=== PATIENT | male | born 1985 | race African-American/Black ===

== ENCOUNTER 2022-03-09 17:11 | Inpatient (IN) | payer OTHER ==
[2022-03-09 21:09] VITALS: BMI 24.3
[2022-03-09] MEDS ORDERED: MAGNESIUM CITRATE 300 ML BOTTLE PO PRN (22:16)
[2022-03-09] MEDS ORDERED: IBUPROFEN 600 MG TABLET (FP) PO PRN (22:16)
[2022-03-09] MEDS ORDERED: P-EPHED 60MG/TRIPROLIDI 2.5MG TABLET PO PRN (22:16)
[2022-03-09] MEDS ORDERED: BISMUTH SUBSALICYLATE 524 MG/30 ML PO PRN (22:16)
[2022-03-09] MEDS ORDERED: hydrOXYzine PAMOATE 25 MG CAPSULE (FP) PO PRN (22:16)
[2022-03-09] MEDS ORDERED: ONDANSETRON *ODT* 4 MG TABLET SL PRN (22:16)
[2022-03-09] MEDS ORDERED: DICYCLOMINE HCL 10 MG CAPSULE PO PRN (22:16)
[2022-03-09] MEDS ORDERED: ACETAMINOPHEN 325 MG TABLET (FP) PO PRN ×2 (22:16)
[2022-03-09] MEDS ORDERED: MAGNESIUM HYDROX 2400MG/30ML ORAL SUSPENSION 30 ML CUP PO PRN (22:16)
[2022-03-09] MEDS ORDERED: LOPERAMIDE HCL 2 MG CAPSULE PO PRN (22:16)
[2022-03-09] MEDS ORDERED: NICOTINE 10 MG CARTRIDGE (INHALER) IH PRN (22:16)
[2022-03-09] MEDS ORDERED: METHOCARBAMOL 500 MG TABLET PO PRN (22:16)
[2022-03-09] MEDS ORDERED: IBUPROFEN 400 MG TABLET (FP) PO PRN (22:16)
[2022-03-09] MEDS ORDERED: guaiFENesin 200 MG/10 ML 10 ML UNIT-DOSE CUPS PO PRN (22:16)
[2022-03-09] MEDS ORDERED: BENZOCAINE/MENTHOL (CHLORASEPTIC ) LOZENGE MM PRN (22:16)
[2022-03-10] MEDS ORDERED: chlordiazePOXIDE HCL 25 MG CAPSULE PO PRN (08:59)
[2022-03-10] MEDS: chlordiazePOXIDE HCL 25 MG CAPSULE PO SCH ×3 (10:29→22:29)
[2022-03-10] MEDS: PRENATAL VITAMINS W/ FOLIC ACID TABLET (FP) PO SCH (10:29)
[2022-03-10 14:54] LABS: HEMATOCRIT 42.5 % (35.4-49); HEMOGLOBIN 14.2 GM/dL (11.7-16.9); MCH 28.7 pg (25.7-33.7); MCHC 33.3 g/dl (32.0-35.9); MEAN CELL VOLUME 86.1 fl (80-96); MEAN PLT VOLUME 9.2 fl (7.5-11.1); PLATELET COUNT 294 10^3/uL (134-434); RBC 4.94 M/mm3 (4.00-5.60); RDW 12.2 % (11.9-15.9); WHITE BLOOD COUNT 4.8 K/mm3 (4.0-10.0)
[2022-03-10 14:54] LABS: CALCIUM 9.2 mg/dL (8.5-10.1)
[2022-03-10 14:55] LABS: ALBUMIN 3.8 g/dl (3.4-5.0); BLOOD UREA NITROGEN 9.3 mg/dL (7-18)
[2022-03-10 14:58] LABS: CREATININE 1.1 mg/dL (0.55-1.3)
[2022-03-10 15:02] LABS: BILIRUBIN,TOTAL 0.3 mg/dL (0.2-1); TOT PROT 6.6 g/dl (6.4-8.2)
[2022-03-10] MEDS: THIAMINE HCL 100 MG TABLET (FP) PO SCH (22:29)
[2022-03-10] MEDS: MELATONIN 5 MG TABLETS PO SCH (22:29)
[2022-03-10] MEDS: risperiDONE 1 MG TABLET PO SCH (22:29)
[2022-03-10] MEDS: DIVALPROEX SODIUM 500 MG TABLET E.C. PO SCH (22:29)
[2022-03-11] MEDS: chlordiazePOXIDE HCL 25 MG CAPSULE PO SCH ×4 (06:25→22:31)
[2022-03-11] MEDS: PRENATAL VITAMINS W/ FOLIC ACID TABLET (FP) PO SCH (10:36)
[2022-03-11] MEDS: DIVALPROEX SODIUM 500 MG TABLET E.C. PO SCH ×2 (10:36→22:32)
[2022-03-11] MEDS: risperiDONE 1 MG TABLET PO SCH ×2 (10:36→22:32)
[2022-03-11] MEDS: MELATONIN 5 MG TABLETS PO SCH (22:32)
[2022-03-11] MEDS: THIAMINE HCL 100 MG TABLET (FP) PO SCH (22:32)
[2022-03-12] MEDS: chlordiazePOXIDE HCL 25 MG CAPSULE PO SCH ×4 (05:31→22:07)
[2022-03-12] MEDS: MAG HYDROX/AL HYDROX/SIMETH 30 ML UNIT-DOSE CUP PO PRN ×2 (05:58→16:31)
[2022-03-12] MEDS: risperiDONE 1 MG TABLET PO SCH ×2 (10:42→22:06)
[2022-03-12] MEDS: PRENATAL VITAMINS W/ FOLIC ACID TABLET (FP) PO SCH (10:42)
[2022-03-12] MEDS: DIVALPROEX SODIUM 500 MG TABLET E.C. PO SCH ×2 (10:42→22:06)
[2022-03-12] MEDS: THIAMINE HCL 100 MG TABLET (FP) PO SCH (22:06)
[2022-03-12] MEDS: MELATONIN 5 MG TABLETS PO SCH (22:06)
[2022-03-13] MEDS ORDERED: chlordiazePOXIDE HCL 10 MG CAPSULE PO PRN
[2022-03-13] MEDS: chlordiazePOXIDE HCL 10 MG CAPSULE PO SCH ×4 (05:01→22:08)
[2022-03-13] MEDS: PRENATAL VITAMINS W/ FOLIC ACID TABLET (FP) PO SCH (10:19)
[2022-03-13] MEDS: risperiDONE 1 MG TABLET PO SCH ×2 (10:20→22:07)
[2022-03-13] MEDS: DIVALPROEX SODIUM 500 MG TABLET E.C. PO SCH ×2 (10:20→22:07)
[2022-03-13] MEDS: THIAMINE HCL 100 MG TABLET (FP) PO SCH (22:07)
[2022-03-13] MEDS: MELATONIN 5 MG TABLETS PO SCH (22:08)
[2022-03-14] MEDS ORDERED: chlordiazePOXIDE HCL 10 MG CAPSULE PO SCH (05:00)
[2022-03-14] MEDS: PRENATAL VITAMINS W/ FOLIC ACID TABLET (FP) PO SCH (12:05)
[2022-03-14] MEDS: DIVALPROEX SODIUM 500 MG TABLET E.C. PO SCH (12:05)
[2022-03-14] MEDS: risperiDONE 1 MG TABLET PO SCH (12:05)
[2022-03-14 15:31] VITALS: BP 134/77; PULSE 76; TEMP 97.7
[2022-03-15] MEDS ORDERED: chlordiazePOXIDE HCL 10 MG CAPSULE PO ONE (05:00)
== END 2022-03-14 17:24 | disposition home or self-care (01) | DRG 774 ==
LOC: YASAS 17:11 → Y3N 22:55
PROVIDERS: ADMIT Allergy & Immunology; ATTEND Surgery
PROC: HZ2ZZZZ Detoxification Services for Substance Abuse Treatment (ICD-10-PCS; principal; 2022-03-09)
DX: F10.230 Alcohol dependence with withdrawal, uncomplicated (principal); F14.20 Cocaine dependence, uncomplicated; F17.210 Nicotine dependence, cigarettes, uncomplicated; F31.9 Bipolar disorder, unspecified
CPT/HCPCS: 36415; 80053; 80164; 85027; 86780; C9803-CS; J2794; U0003; U0005

== ENCOUNTER 2022-03-29 12:04 | Inpatient (IN) | payer OTHER ==
[2022-03-29 13:08] VITALS: BMI 25.5
[2022-03-29] MEDS ORDERED: NICOTINE POLACRILEX 2 MG GUM BUC PRN (14:47)
[2022-03-29] MEDS ORDERED: IBUPROFEN 600 MG TABLET (FP) PO PRN (14:47)
[2022-03-29] MEDS ORDERED: IBUPROFEN 400 MG TABLET (FP) PO PRN (14:47)
[2022-03-29] MEDS ORDERED: METHOCARBAMOL 500 MG TABLET PO PRN (14:47)
[2022-03-29] MEDS ORDERED: LOPERAMIDE HCL 2 MG CAPSULE PO PRN (14:47)
[2022-03-29] MEDS ORDERED: MAGNESIUM HYDROX 2400MG/30ML ORAL SUSPENSION 30 ML CUP PO PRN (14:47)
[2022-03-29] MEDS ORDERED: MAG HYDROX/AL HYDROX/SIMETH 30 ML UNIT-DOSE CUP PO PRN (14:47)
[2022-03-29] MEDS ORDERED: BENZOCAINE/MENTHOL (CHLORASEPTIC ) LOZENGE MM PRN (14:47)
[2022-03-29] MEDS ORDERED: ONDANSETRON *ODT* 4 MG TABLET SL PRN (14:47)
[2022-03-29] MEDS ORDERED: ACETAMINOPHEN 325 MG TABLET (FP) PO PRN ×2 (14:47)
[2022-03-29] MEDS ORDERED: MAGNESIUM CITRATE 300 ML BOTTLE PO PRN (14:47)
[2022-03-29] MEDS ORDERED: BISMUTH SUBSALICYLATE 524 MG/30 ML PO PRN (14:47)
[2022-03-29] MEDS ORDERED: NICOTINE 10 MG CARTRIDGE (INHALER) IH PRN (14:47)
[2022-03-29] MEDS ORDERED: DICYCLOMINE HCL 10 MG CAPSULE PO PRN (14:47)
[2022-03-29] MEDS ORDERED: risperiDONE 3 MG TABLET PO SCH (15:00)
[2022-03-29] MEDS: DIVALPROEX SODIUM 500 MG TABLET E.C. PO SCH (17:21)
[2022-03-29] MEDS: PRENATAL VITAMINS W/ FOLIC ACID TABLET (FP) PO SCH (17:26)
[2022-03-29] MEDS: hydrOXYzine PAMOATE 25 MG CAPSULE (FP) PO SCH ×2 (17:26→22:11)
[2022-03-29] MEDS ORDERED: risperiDONE 1 MG TABLET PO SCH ×2 (18:58→19:00)
[2022-03-29] MEDS: MELATONIN 5 MG TABLETS PO SCH (22:11)
[2022-03-29] MEDS: THIAMINE HCL 100 MG TABLET (FP) PO SCH (22:11)
[2022-03-30] MEDS: hydrOXYzine PAMOATE 25 MG CAPSULE (FP) PO SCH ×5 (06:54→22:39)
[2022-03-30] MEDS ORDERED: chlordiazePOXIDE HCL 25 MG CAPSULE PO PRN (09:57)
[2022-03-30] MEDS: PRENATAL VITAMINS W/ FOLIC ACID TABLET (FP) PO SCH (09:58)
[2022-03-30] MEDS: risperiDONE 3 MG TABLET PO SCH (09:58)
[2022-03-30] MEDS: DIVALPROEX SODIUM 500 MG TABLET E.C. PO SCH (09:58)
[2022-03-30] MEDS: chlordiazePOXIDE HCL 25 MG CAPSULE PO SCH ×3 (10:22→22:38)
[2022-03-30 13:47] LABS: CALCIUM 9.2 mg/dL (8.5-10.1)
[2022-03-30 13:48] LABS: ALBUMIN 3.9 g/dl (3.4-5.0); BLOOD UREA NITROGEN 10.8 mg/dL (7-18); HEMATOCRIT 41.7 % (35.4-49); HEMOGLOBIN 13.7 GM/dL (11.7-16.9); MCH 28.7 pg (25.7-33.7); MCHC 32.9 g/dl (32.0-35.9); MEAN CELL VOLUME 87.3 fl (80-96); MEAN PLT VOLUME 9.4 fl (7.5-11.1); PLATELET COUNT 192 10^3/uL (134-434); RBC 4.77 M/mm3 (4.00-5.60); RDW 12.9 % (11.9-15.9); WHITE BLOOD COUNT 4.8 K/mm3 (4.0-10.0)
[2022-03-30 13:51] LABS: CREATININE 1.2 mg/dL (0.55-1.3)
[2022-03-30 13:52] LABS: BILIRUBIN,TOTAL 0.5 mg/dL (0.2-1); TOT PROT 6.7 g/dl (6.4-8.2)
[2022-03-30] MEDS: MELATONIN 5 MG TABLETS PO SCH (22:39)
[2022-03-30] MEDS: THIAMINE HCL 100 MG TABLET (FP) PO SCH (22:39)
[2022-03-31] MEDS: chlordiazePOXIDE HCL 25 MG CAPSULE PO SCH ×4 (06:12→23:03)
[2022-03-31] MEDS: hydrOXYzine PAMOATE 25 MG CAPSULE (FP) PO SCH ×5 (06:12→23:05)
[2022-03-31] MEDS: DIVALPROEX SODIUM 500 MG TABLET E.C. PO SCH (09:35)
[2022-03-31] MEDS: risperiDONE 3 MG TABLET PO SCH (09:35)
[2022-03-31] MEDS: PRENATAL VITAMINS W/ FOLIC ACID TABLET (FP) PO SCH (09:35)
[2022-03-31] MEDS: THIAMINE HCL 100 MG TABLET (FP) PO SCH (23:05)
[2022-03-31] MEDS: MELATONIN 5 MG TABLETS PO SCH (23:05)
[2022-04-01] MEDS: hydrOXYzine PAMOATE 25 MG CAPSULE (FP) PO SCH ×5 (06:19→22:34)
[2022-04-01] MEDS: chlordiazePOXIDE HCL 25 MG CAPSULE PO SCH ×4 (06:19→22:34)
[2022-04-01] MEDS: PRENATAL VITAMINS W/ FOLIC ACID TABLET (FP) PO SCH (10:44)
[2022-04-01] MEDS: risperiDONE 3 MG TABLET PO SCH (10:44)
[2022-04-01] MEDS: DIVALPROEX SODIUM 500 MG TABLET E.C. PO SCH (10:44)
[2022-04-01] MEDS: MELATONIN 5 MG TABLETS PO SCH (22:34)
[2022-04-01] MEDS: THIAMINE HCL 100 MG TABLET (FP) PO SCH (22:34)
[2022-04-02] MEDS ORDERED: chlordiazePOXIDE HCL 10 MG CAPSULE PO PRN
[2022-04-02] MEDS: chlordiazePOXIDE HCL 10 MG CAPSULE PO SCH ×3 (06:22→17:55)
[2022-04-02] MEDS: hydrOXYzine PAMOATE 25 MG CAPSULE (FP) PO SCH ×4 (06:22→17:56)
[2022-04-02] MEDS: DIVALPROEX SODIUM 500 MG TABLET E.C. PO SCH (10:12)
[2022-04-02] MEDS: risperiDONE 3 MG TABLET PO SCH (10:12)
[2022-04-02] MEDS: PRENATAL VITAMINS W/ FOLIC ACID TABLET (FP) PO SCH (10:12)
[2022-04-02 18:48] VITALS: BP 139/85; PULSE 105; RESP 20; TEMP 97.5
[2022-04-03] MEDS ORDERED: chlordiazePOXIDE HCL 10 MG CAPSULE PO SCH (05:00)
[2022-04-04] MEDS ORDERED: chlordiazePOXIDE HCL 10 MG CAPSULE PO ONE (05:00)
== END 2022-04-02 18:56 | disposition left against medical advice (07) | DRG 770 ==
LOC: YASAS 12:04 → SUATTDRO 12:04 → UNDOADMIN 15:29 → Y3N 15:29
PROVIDERS: ADMIT Allergy & Immunology; ATTEND Surgery
PROC: HZ2ZZZZ Detoxification Services for Substance Abuse Treatment (ICD-10-PCS; principal; 2022-03-29)
DX: F10.230 Alcohol dependence with withdrawal, uncomplicated (principal); F14.20 Cocaine dependence, uncomplicated; F17.210 Nicotine dependence, cigarettes, uncomplicated; F31.9 Bipolar disorder, unspecified; Z91.14 Patient's other noncompliance with medication regimen
CPT/HCPCS: 36415; 80053; 85027; 86780; C9803-CS; J2794; U0003; U0005

== ENCOUNTER 2022-07-28 13:31 | Inpatient (IN) | payer OTHER ==
[2022-07-28 14:49] VITALS: BMI 28.0
[2022-07-28] MEDS ORDERED: MAG HYDROX/AL HYDROX/SIMETH 30 ML UNIT-DOSE CUP PO PRN (16:37)
[2022-07-28] MEDS ORDERED: BISMUTH SUBSALICYLATE 524 MG/30 ML PO PRN (16:37)
[2022-07-28] MEDS ORDERED: NICOTINE 10 MG CARTRIDGE (INHALER) IH PRN (16:37)
[2022-07-28] MEDS ORDERED: METHOCARBAMOL 500 MG TABLET PO PRN (16:37)
[2022-07-28] MEDS ORDERED: IBUPROFEN 400 MG TABLET (FP) PO PRN (16:37)
[2022-07-28] MEDS ORDERED: LOPERAMIDE HCL 2 MG CAPSULE PO PRN (16:37)
[2022-07-28] MEDS ORDERED: BENZOCAINE/MENTHOL (CHLORASEPTIC ) LOZENGE MM PRN (16:37)
[2022-07-28] MEDS ORDERED: POLYETHYLENE GLYCOL (HEALTHYLAX) 3350 17 GM PACKET PO PRN (16:37)
[2022-07-28] MEDS ORDERED: MAGNESIUM HYDROX 2400MG/30ML ORAL SUSPENSION 30 ML CUP PO PRN (16:37)
[2022-07-28] MEDS ORDERED: NALOXONE HCL (KLOXXADO) 8 MG SPRAY NS PRN (16:37)
[2022-07-28] MEDS ORDERED: IBUPROFEN 600 MG TABLET (FP) PO PRN (16:37)
[2022-07-28] MEDS ORDERED: DICYCLOMINE HCL 10 MG CAPSULE PO PRN (16:37)
[2022-07-28] MEDS ORDERED: ONDANSETRON *ODT* 4 MG TABLET SL PRN (16:37)
[2022-07-28] MEDS ORDERED: ACETAMINOPHEN 325 MG TABLET (FP) PO PRN ×2 (16:37)
[2022-07-28] MEDS: PRENATAL VITAMINS W/ FOLIC ACID TABLET (FP) PO SCH (17:08)
[2022-07-28] MEDS: chlordiazePOXIDE HCL 25 MG CAPSULE PO SCH ×2 (17:09→22:03)
[2022-07-28] MEDS ORDERED: THIAMINE HCL 100 MG TABLET (FP) PO SCH (22:00)
[2022-07-28] MEDS ORDERED: MELATONIN 5 MG TABLETS PO SCH (22:00)
[2022-07-29] MEDS: chlordiazePOXIDE HCL 25 MG CAPSULE PO SCH ×3 (05:32→10:47)
[2022-07-29 10:20] LABS: HEMATOCRIT 42.9 % (35.4-49); HEMOGLOBIN 14.3 GM/dL (11.7-16.9); MCH 29.2 pg (25.7-33.7); MCHC 33.3 g/dl (32.0-35.9); MEAN CELL VOLUME 87.5 fl (80-96); PLATELET COUNT 239 10^3/uL (134-434); RBC 4.91 M/mm3 (4.00-5.60); RDW 12.4 % (11.9-15.9); WHITE BLOOD COUNT 4.1 K/mm3 (4.0-10.0)
[2022-07-29 10:23] LABS: ALBUMIN 3.5 g/dl (3.4-5.0); BLOOD UREA NITROGEN 11.8 mg/dL (7-18)
[2022-07-29 10:24] LABS: CALCIUM 9.1 mg/dL (8.5-10.1)
[2022-07-29 10:26] LABS: CREATININE 1.3 mg/dL (0.55-1.3)
[2022-07-29 10:28] LABS: BILIRUBIN,TOTAL 0.6 mg/dL (0.2-1); TOT PROT 6.3 g/dl (6.4-8.2)
[2022-07-29] MEDS: PRENATAL VITAMINS W/ FOLIC ACID TABLET (FP) PO SCH (10:47)
[2022-07-29 13:34] VITALS: BP 128/80; RESP 16; TEMP 98.2
[2022-07-29 13:37] VITALS: PULSE 83
[2022-07-30] MEDS ORDERED: chlordiazePOXIDE HCL 25 MG CAPSULE PO SCH (05:00)
[2022-07-31] MEDS ORDERED: chlordiazePOXIDE HCL 10 MG CAPSULE PO SCH (05:00)
[2022-08-01] MEDS ORDERED: chlordiazePOXIDE HCL 10 MG CAPSULE PO SCH (05:00)
[2022-08-02] MEDS ORDERED: chlordiazePOXIDE HCL 10 MG CAPSULE PO ONE (05:00)
== END 2022-07-29 13:47 | disposition left against medical advice (07) | DRG 770 ==
LOC: YASAS 13:31 → SUATTDRO 13:31 → Y3N 16:35
PROVIDERS: ADMIT Allergy & Immunology; ATTEND Surgery
DX: F10.230 Alcohol dependence with withdrawal, uncomplicated (principal); F14.20 Cocaine dependence, uncomplicated; F17.210 Nicotine dependence, cigarettes, uncomplicated; U07.1 COVID-19; F31.9 Bipolar disorder, unspecified
CPT/HCPCS: 36415; 80053; 85027; 86780; C9803-CS; U0003; U0005

== ENCOUNTER 2022-08-20 08:26 | Inpatient (IN) | payer OTHER ==
[2022-08-20] MEDS ORDERED: IBUPROFEN 400 MG TABLET (FP) PO PRN (09:29)
[2022-08-20] MEDS ORDERED: NALOXONE HCL (KLOXXADO) 8 MG SPRAY NS PRN (09:29)
[2022-08-20] MEDS ORDERED: hydrOXYzine PAMOATE 25 MG CAPSULE (FP) PO PRN (09:29)
[2022-08-20] MEDS ORDERED: chlordiazePOXIDE HCL 25 MG CAPSULE PO PRN (09:29)
[2022-08-20] MEDS ORDERED: DICYCLOMINE HCL 10 MG CAPSULE PO PRN (09:29)
[2022-08-20] MEDS ORDERED: ONDANSETRON *ODT* 4 MG TABLET SL PRN (09:29)
[2022-08-20] MEDS ORDERED: BISMUTH SUBSALICYLATE 524 MG/30 ML PO PRN (09:29)
[2022-08-20] MEDS ORDERED: MAGNESIUM HYDROX 2400MG/30ML ORAL SUSPENSION 30 ML CUP PO PRN (09:29)
[2022-08-20] MEDS ORDERED: IBUPROFEN 600 MG TABLET (FP) PO PRN (09:29)
[2022-08-20] MEDS ORDERED: BENZOCAINE/MENTHOL (CHLORASEPTIC ) LOZENGE MM PRN (09:29)
[2022-08-20] MEDS ORDERED: MAG HYDROX/AL HYDROX/SIMETH 30 ML UNIT-DOSE CUP PO PRN (09:29)
[2022-08-20] MEDS ORDERED: NICOTINE 10 MG CARTRIDGE (INHALER) IH PRN (09:29)
[2022-08-20] MEDS ORDERED: LOPERAMIDE HCL 2 MG CAPSULE PO PRN (09:29)
[2022-08-20] MEDS ORDERED: POLYETHYLENE GLYCOL (HEALTHYLAX) 3350 17 GM PACKET PO PRN (09:29)
[2022-08-20] MEDS ORDERED: METHOCARBAMOL 500 MG TABLET PO PRN (09:29)
[2022-08-20] MEDS ORDERED: ACETAMINOPHEN 325 MG TABLET (FP) PO PRN ×2 (09:29)
[2022-08-20 09:36] VITALS: BMI 26.2
[2022-08-20] MEDS ORDERED: hydrOXYzine PAMOATE 25 MG CAPSULE (FP) PO ONE (10:31)
[2022-08-20] MEDS ORDERED: chlordiazePOXIDE HCL 25 MG CAPSULE ONE (10:32)
[2022-08-20] MEDS: chlordiazePOXIDE HCL 25 MG CAPSULE PO SCH ×3 (11:11→22:39)
[2022-08-20] MEDS: PRENATAL VITAMINS W/ FOLIC ACID TABLET (FP) PO SCH (11:14)
[2022-08-20] MEDS: NICOTINE 21 MG/24 HOURS TOPICAL PATCH TD SCH (11:14)
[2022-08-20 18:02] VITALS: RESP 18
[2022-08-20] MEDS ORDERED: THIAMINE HCL 100 MG TABLET (FP) PO SCH (22:00)
[2022-08-20] MEDS ORDERED: MELATONIN 5 MG TABLETS PO SCH (22:00)
[2022-08-21] MEDS: chlordiazePOXIDE HCL 25 MG CAPSULE PO SCH ×3 (06:18→17:40)
[2022-08-21] MEDS: NICOTINE 21 MG/24 HOURS TOPICAL PATCH TD SCH (11:14)
[2022-08-21] MEDS: PRENATAL VITAMINS W/ FOLIC ACID TABLET (FP) PO SCH (11:14)
[2022-08-21 16:49] VITALS: BP 114/63; PULSE 75; TEMP 97.7
[2022-08-22] MEDS ORDERED: chlordiazePOXIDE HCL 25 MG CAPSULE PO SCH (05:00)
[2022-08-23] MEDS ORDERED: chlordiazePOXIDE HCL 10 MG CAPSULE PO PRN
[2022-08-23] MEDS ORDERED: chlordiazePOXIDE HCL 10 MG CAPSULE PO SCH (05:00)
[2022-08-24] MEDS ORDERED: chlordiazePOXIDE HCL 10 MG CAPSULE PO SCH (05:00)
[2022-08-25] MEDS ORDERED: chlordiazePOXIDE HCL 10 MG CAPSULE PO ONE (05:00)
== END 2022-08-21 20:07 | disposition left against medical advice (07) | DRG 770 ==
LOC: YASAS 08:26 → Y3N 09:59
PROVIDERS: ADMIT Allergy & Immunology; ATTEND Surgery
PROC: HZ2ZZZZ Detoxification Services for Substance Abuse Treatment (ICD-10-PCS; principal; 2022-08-20)
DX: F10.230 Alcohol dependence with withdrawal, uncomplicated (principal); F14.20 Cocaine dependence, uncomplicated; F17.210 Nicotine dependence, cigarettes, uncomplicated; F31.9 Bipolar disorder, unspecified
CPT/HCPCS: 87811; C9803-CS; U0003; U0005